=== PATIENT | male | born 1990 | race African-American/Black ===

== ENCOUNTER 2023-10-31 18:50 | Emergency (ER) | payer SELFPAY | END 2023-10-31 20:01 | disposition home or self-care (01) | LOC: MW.ED 18:50 | DX: L30.9 Dermatitis, unspecified (principal); Z79.899 Other long term (current) drug therapy | CPT/HCPCS: 99282; 99283 ==

== ENCOUNTER 2024-03-21 09:22 | Emergency (ER) | payer SELFPAY ==
[2024-03-21] MEDS: Amoxicillin/Clavulanate K 875-125 MG Tab PO ONE (09:57)
[2024-03-21] MEDS: Benzocaine 20% Topical Spray UD MUCMEM ONE (09:57)
[2024-03-21] MEDS: Lidocaine 2% Viscous Solution 15 ML UD PO ONE (09:58)
== END 2024-03-21 10:22 | disposition home or self-care (01) ==
LOC: MW.ED 09:22
DX: K02.9 Dental caries, unspecified (principal); Z75.8 Other problems related to medical facilities and other health care
CPT/HCPCS: 99283; A9270; 99282